=== PATIENT | female | born 1995 | race African-American/Black ===

== ENCOUNTER 2018-06-24 04:20 | Emergency (ER) | payer MEDICAID ==
[~2018-06-24] VITALS: Ht 154.9 cm; Wt 81.6 kg
[2018-06-24] MEDS ORDERED: LIDOCAINE 2% (LOCAL ANESTH.) PF 5ml SDV ONE (08:25)
[2018-06-24 09:45] VITALS: BP 92/49
[2018-06-24] MEDS ORDERED: LIDOCAINE 2%HCL (LOCAL ANESTH.) INJ 10ml MDV IJ ONE (09:45)
== END 2018-06-24 11:18 | disposition home or self-care (01) ==
LOC: EDBD 04:20 → ER 04:26
DX: S01.81XA Laceration without foreign body of other part of head, initial encounter (principal); S80.11XA Contusion of right lower leg, initial encounter; M54.2 Cervicalgia; F12.90 Cannabis use, unspecified, uncomplicated; V49.49XA Driver injured in collision with other motor vehicles in traffic accident, initial encounter; Y93.89 Activity, other specified; Y99.8 Other external cause status; Y92.488 Other paved roadways as the place of occurrence of the external cause
CPT/HCPCS: 12011; 70450; 70486; 72125; 73590; 99284; J2001